=== PATIENT | male | born 1950 | race Caucasian/White ===

== ENCOUNTER → 2016-04-01 | Outpatient (CLI) | payer MEDICARE, OTHER ==
[~2016-04-01] MED LIST: ALLOPURINOL100 MG PO; ASPIRIN ADULT L81 M1 PO; ATIVAN0.5 MG PO; BACTRIM DS 8001 TA1 PO; BENADRYL50 MG PO; COUMADIN2.5 M1 PO; COUMADIN3 M1 PO; COUMADIN4 M2 PO; COUMADIN5 M2 PO; DOBUTAMINE250 MG/250 IV; HYDROCODONE BIT1 T11 PO; K + POTASSIUM20 MEQ PO; K-Dur 20MEQ20 MEQ PO; K-TAB20 MEQ PO; LANOXIN0.125 MG PO; LASIX80 MG PO; MAG-OX 400400 MG PO; MAGNESIUM400 M1 PO; MEDROL DOSEPAK4 MG PO; METOPROLOL50 MG PO; MULTIPLE VITAMI1 CAP PO; MUPIROCIN 2% TP; PRILOSEC20 M1 PO; PRILOSEC40 MG PO; PRINIVIL10 MG PO; QUINAPRIL10 M1 PO; QUINAPRIL20 MG PO; ROCALTROL0.5 MC1 PO; SMZ TMP 800 MG PO; SPIRONOLACTONE25 MG PO; TORSEMIDE100 MG PO; TRAZODONE50 MG PO; ULORIC40 MG PO; VICODIN 5/500 505 MG PO; VITAMIN C500 M4 PO; ZESTRIL10 MG PO; Zaroxolyn,Diul2.5 MG PO
== END | disposition home or self-care (01) ==
LOC: US 01:19
DX: N18.9 Chronic kidney disease, unspecified (principal); R31.9 Hematuria, unspecified

== ENCOUNTER → 2016-06-14 | Outpatient (CLI) | payer MEDICARE, OTHER ==
[~2016-06-14] MED LIST changes: -DOBUTAMINE250 MG/250 IV
[2016-06-14 16:47] LABS: BASO % 0.4 % (0.0-1.0); EOS % 0.3 % (1.0-4.0); HEMATOCRIT 47.5 % (42.0-52.0); HEMOGLOBIN 13.6 g/dl (14.0-18.0); LYMPH # 0.5 10*3/uL (1.3-4.4); LYMPH % 7.1 % (27.0-41.0); MEAN CELL VOLUME 88.1 fl (80.0-94.0); MEAN CORPUSCULAR HGB 25.2 pg (27.0-31.0); MEAN CORPUSCULAR HGB CONC 28.6 g/dl (33.0-37.0); MEAN PLATELET VOLUME 9.6 fl (9.6-12.3); MONO # 0.8 10*3/uL (0.1-1.0); NEUT # 5.5 10*3/uL (2.3-7.9); NEUT % 79.9 % (47.0-73.0); PLATELET COUNT AUTOMATED 117 10*3/uL (130-400); RED BLOOD COUNT 5.39 10*6/uL (4.50-5.90); RED CELL DISTRI WIDTH 18.7 % (0-14.5); WHITE BLOOD COUNT 6.9 10*3/uL (4.8-10.8)
[2016-06-14 16:57] LABS: PROTHROMBIN TIME 46.9 SECONDS (9.0-12.4)
[2016-06-14 17:03] LABS: ALBUMIN 3.2 gm/dl (3.1-4.5); BILIRUBIN, TOTAL 1.5 mg/dl (0.2-1.0); POTASSIUM 5.6 mmol/L (3.5-5.1); TOTAL PROTEIN 7.1 gm/dL (6.4-8.2)
[2016-06-14 17:08] LABS: HEMOGLOBIN A1c 6.5 % (4.8-5.6)
== END | disposition home or self-care (01) ==
LOC: RESCLI 13:07
PROVIDERS: Internal Medicine
DX: I51.9 Heart disease, unspecified (principal); I73.9 Peripheral vascular disease, unspecified; Z79.01 Long term (current) use of anticoagulants

== ENCOUNTER 2016-06-15 13:47 | Inpatient (IN) | payer MEDICARE, OTHER ==
[~2016-06-15] VITALS: Ht 175.2 cm; Wt 96.3 kg
--- NOTE | ~2016-06-15 | PR ---
[place], [place] PROGRESS NOTE NAME: MARIE MULLEN UNIT #: [id number] ROOM: 416 DOCTOR: STEVE AMBRIZ MD BIRTHDATE: [birth year] DOS: 06/21/2016 SUBJECTIVE: This gentleman is with severe hypertensive cardiomyopathy, was admitted because of severe cellulitis of the legs. The patient is being treated now fairly aggressively. He has been chronically short of breath, but today he seems to be more short of breath, i.e., tachypneic, and no chest pain or palpitations. He has had no chest pain. OBJECTIVE: VITAL SIGNS: Pulse is irregular, blood pressure 118/92. NECK: JVP is increased. LUNGS: Breath sounds are diminished with crackles bilaterally. Monitor shows at times a wide complex ventricular tachycardia at 150 beats per minute. The patient has biventricular AICD and threshold is probably set at a much higher rate. This is asymptomatic. IMPRESSION: 1. Severe hypertensive cardiomyopathy with some decompensation. He is getting his 100 mg of Demadex every day. He may need some Zaroxolyn along with that if his breathing does not seem to improve, 2. Nonsustained ventricular tachycardia, nothing to be done for this at this time, he has an automatic implantable cardioverter-defibrillator as a backup. ADDENDUM The patient has a moderate degree of edema in the upper extremities and severe edema of the lower extremities and the torso is rather edematous and taut. RECOMMENDATIONS: Demadex will be discontinued and the patient will be started on a Bumex drip 10 mg per 24 hours. Hopefully, we will be able to diurese him adequately. If not, we will add little dopamine and dobutamine as a continuous drip. [place], [place] PROGRESS NOTE NAME: MARIE MULLEN UNIT #: [id number] ROOM: 416 DOCTOR: STEVE AMBRIZ MD BIRTHDATE: [birth year] STEVE AMBRIZ MD CM:PNTRANS [phone] STEVE AMBRIZ MD 06/24/16 0656 interface
--- NOTE | ~2016-06-15 | PR ---
[place], [place] PROGRESS NOTE NAME: MARIE MULLEN UNIT #: [id number] ROOM: 416 DOCTOR: CARLENE HA MD BIRTHDATE: [birth year] DOS: 06/17/2016 SUBJECTIVE: 24-hour events noted. Discussed with the nursing staff. I am covering for Dr. Bah. The patient with significant left ventricular dysfunction with an AICD, history of atrial fibrillation and patient was seen by Dr. Bah yesterday. Cardiac status appears to be stable. He is breathing normally. The patient with severe cardiomyopathy with chronic kidney disease. OBJECTIVE: VITAL SIGNS: His blood pressure today is 90/60, heart rate is 74 intermittent paced rhythm. NECK: Supple, elevated JVD. LUNGS: Diminished breath sounds. HEART: Sounds are regular. ABDOMEN: Soft, nontender. EXTREMITIES: Trace edema. NEUROLOGIC: Stable. LABORATORY DATA: Hemoglobin 13.4, hematocrit 45.1, potassium 4.9, creatinine 2.6. Echocardiogram showed an ejection fraction of 15%-20%. IMPRESSION AND PLAN: Severe cardiomyopathy with mild cardiac decompensation, AICD, cellulitis of the lower extremity significant, agree with the present medications and the patient has the AICD, chronic atrial fibrillation, is functioning normally. RECOMMENDATIONS: Continue the present medications which include antibiotics as per the hospitalist. Monitor the renal function very closely. Continue aspirin. The patient is on ____ subcutaneous heparin for DVT prophylaxis. Long-term anticoagulation is warranted and we will follow up. The patient was at home on metoprolol 50 b.i.d., torsemide and Coumadin, which should be resumed. The patient has chronic atrial fibrillation and we will follow up. [place], [place] PROGRESS NOTE NAME: SEBASMARIE UNIT #: [id number] ROOM: 416 DOCTOR: CARLENE HA MD BIRTHDATE: [birth year] CARLENE HA MD CM:PNTRANS [id number] CARLENE HA MD 06/17/16 1105 interface
--- NOTE | ~2016-06-15 | PR ---
[place], [place] PROGRESS NOTE NAME: [id number] UNIT #: [id number] ROOM: 416 DOCTOR: BANDAR IZQUIERDO DPM BIRTHDATE: [birth year] DOS: 06/17/2016 SUBJECTIVE: The patient presents 65-year-old male for followup of ulcerations and cellulitis both lower extremities. OBJECTIVE: The results of the patient's venous Doppler is negative for DVT. The patient also had arterial Doppler, which revealed no significant peripheral arterial disease. Clinically, there is still erythema to both lower extremities, mild edema, but not significant. There are venous ulcerations of both lower extremities. Serous fluid noted. A blister of the medial left calf was noted and drained of serous fluid. ASSESSMENT: Venous ulcerations, lymphedema, venous insufficiency, cellulitis both lower extremities. PLAN: Evaluation and management, deferred Unna boots as the patient would drain through them in one day. Ordered Bactroban and Telfa with gauze dressings and Kerlix with Tubigrip to be applied daily. We will recheck the patient tomorrow. BANDAR IZQUIERDO DPM CM:MADELINE [id number] BANDAR IZQUIERDO DPM 06/18/16 0017 interface
--- NOTE | ~2016-06-15 | PR ---
[place], [place] PROGRESS NOTE NAME: [id number] UNIT #: [id number] ROOM: 416 DOCTOR: LUIS VALENZUELA DPM BIRTHDATE: [birth year] DOS: 06/21/2016 SUBJECTIVE: This patient is seen today for followup of bilateral leg ulcers as well as a left plantar arch wound. He states he is not feeling well today. He is having a hard time urinating, says he is swelling a little more in both legs and even up in his upper extremities. OBJECTIVE: Dressings are removed. Wounds are clean on the calf and lower leg area. They are more so on the right than the left. Minimal serous drainage is seen. No purulent drainage or malodor. Plantar left arch wound is fairly clean. No deep sinus tracts. No signs of abscess or infection. There is a little bit of erythema on the right lower extremity today, but no increased temperature. Negative Homans sign bilaterally. ASSESSMENT: Chronic venous insufficiency, venous leg ulcers, and diabetic ulcer of left foot. PLAN: Evaluation and management. Continue with wound care to the area with Maxorb as well as dry dressing. We will continue to monitor his wounds and follow up tomorrow. LUIS VALENZUELA DPM CM:MADELINE [phone] LUIS VALENZUELA DPM 06/21/16 1620 interface
--- NOTE | ~2016-06-15 | EKG ---
[place], [place] ELECTROCARDIOGRAM REPORT NAME: MARIE MULLEN UNIT #: [id number] ROOM: 416 DOCTOR: STEVE AMBRIZ MD BIRTHDATE: [birth year] DOS: 06/15/2016 TIME: 14:38 hours. Underlying atrial fibrillation with ventricular pacing at 75 beats per minutes. The tracing is normal. No previous tracing is available for comparison. STEVE AMBRIZ MD CM:EKGRPT:ELECTROCARDIOGRAM REPORT [id number] STEVE AMBRIZ MD
--- NOTE | ~2016-06-15 | PR ---
[place], [place] PROGRESS NOTE [facility]: [id number] UNIT #: [id number] ROOM: 416 DOCTOR: LUIS VALENZUELA DPM BIRTHDATE: [birth year] DOS: 06/18/2016 SUBJECTIVE: The patient seen today for followup of left arch ulcer as well as bilateral leg ulcers venous insufficiency. The patient has a history of significant deformity in the left foot and ankle for which he had surgery in the past and he is left with the significant deformity. OBJECTIVE: Neurovascular status is unchanged. There is still some low grade edema noted of both lower extremities, but minimal erythema, minimal serous drainage is noted from the wound was noted at the medial and lateral lower calf area. No purulent drainage or malodor. Negative Homans sign is seen. The left medial arch wound is clean with no signs of infection. ASSESSMENT: Peripheral edema, venous ulcerations both legs, ulcer of left arch and improving cellulitis bilaterally. PLAN: Evaluation and management. Dressings changed. He is doing better. There is decreased drainage, decreased swelling and redness. Continue with the current wound care. Reevaluate tomorrow. LUIS VALENZUELA DPM CM:MADELINE 11 [phone] LUIS VALENZUELA DPM 06/18/162003 interface
--- NOTE | ~2016-06-15 | PR ---
[place], [place] PROGRESS NOTE NAME: [id number] UNIT #: [id number] ROOM: 416 DOCTOR: BRUNO SamayoaYESSICA BIRTHDATE: [birth year] DOS: 06/17/2016 WOUND CARE FOLLOWUP SUBJECTIVE: The patient has no specific new complaints. He states that he thinks his legs are not as red today, but they are still painful. He has no other specific complaints. PHYSICAL EXAMINATION: VITAL SIGNS: Stable. Blood pressure is 98/62, pulse is 76, respirations 20. WOUND EXAMINATION: Apparently, the patient's wounds were examined earlier by Podiatry and they currently have 4 x 4s attached to the bases of the wounds. There were pretty adherent to the base of the wound at this time and still 2 of the wounds have a fair amount of fibrin and slough present that is on the left anterior leg and the right lateral leg. The erythema; however, seems improved today slightly, edema seems fairly stable and it is not acutely warm. The foot wounds appear stable at this time. It does look like the TheraHoney did clean up one of the larger wound and the base of the wound appears fairly healthy at this time. There is still some callus present around the periwound area. LABORATORY DATA: He has no new labs today. He did have a lower extremity ultrasound, which showed no evidence of a DVT. ASSESSMENT AND PLAN: Multiple blistering of the bilateral lower extremities, likely secondary to venous insufficiency. I would like [facility] for now as initially it was thought that these wounds resulted from a burn, however, it is more likely secondary to his venous insufficiency, so we will go ahead and would recommend Adaptic to keep the dressings from sticking and then Maxorb Ag to help absorb and for antibacterial coverage. We can use Kerlix and Jayme wrap for edema control at this time. These dressings can be changed daily. For the foot wound, it looks like it is a lot roll cleaner. So I would go ahead and use Aquacel AG for now, 4 x 4s and some Kerlix. He should have a postop shoe to ambulate with. His x-ray apparently was unremarkable and he did have a normal ESR I believe. ESR was only 2. The patient did have an echocardiogram done, which shows a severely diminished systolic function with an EF of 15%-20%. Most likely, this patient will need chronic wound care for some time until the wounds are healed and I would recommend outpatient treatment for the wound when medically stable. A culture was taken of the left anterior leg wound. [place], [place] PROGRESS NOTE NAME: MARIE MULLEN UNIT #: [id number] ROOM: [facility] DOCTOR: YESSICA CARR M.D. BIRTHDATE: [birth year] YESSICA CARR MD CM:MADELINE [phone] YESSICA CARR M.D. 06/18/16 0153 interface
--- NOTE | ~2016-06-15 | PR ---
[place], [place] PROGRESS NOTE NAME: MARIE MULLEN UNIT #: [id number] ROOM: 416 DOCTOR: CARLENE HA MD BIRTHDATE: [birth year] DOS: SUBJECTIVE: 24-hour events noted. The patient comfortably sleeping, does not look to be in any distress. No evidence of any ventricular tachycardia. OBJECTIVE: VITAL SIGNS: Blood pressure is 102/64. HEENT: Unremarkable. NECK: Supple. No JVD, no thyromegaly, no lymphadenopathy. LUNGS: Diminished breath sounds. EXTREMITIES: Positive edema and erythema. NEUROLOGIC: Stable. LABORATORY DATA: Hemoglobin 11.6, hematocrit 39.5. BUN and creatinine 42 and 1.8. IMPRESSION: Cellulitis, coagulopathy, normocytic anemia, history of supratherapeutic INR, acute on chronic renal failure, diabetes mellitus, AICD. Last INR is significantly improved 1.5. Continue the present care. Monitor the heart rate and blood pressure, resume the Coumadin, and we will follow up. CARLENE HA MD CM:PNTRANS 0739 [id number] CARLENE HA MD 06/22/16 1057 interface
--- NOTE | ~2016-06-15 | PR ---
[place], [place] PROGRESS NOTE [id number] UNIT #: [id number] ROOM: 416 DOCTOR: BRUNO Samayoa,YESSICA BIRTHDATE: [birth year] DOS: 06/18/2016 SUBJECTIVE: Dressings were removed. The patient states overall, his legs feel much better. He feels that the discoloration in his feet is improving as well and the pain is much improved. OBJECTIVE: VITAL SIGNS: This morning, his temperature is 97.4, pulse is 74, respirations 20, blood pressure is 137/88. EXTREMITIES: The Jayme wraps were removed. The dressing was removed. The Maxorb silver was not in place at this time that had been used yesterday. There seems to be overall an improvement as far as the wound, looks cleaner furniture today. The redness seems to have dissipated and is much less tender overall. The wounds on the bottom of his foot appear about the same overall. LABORATORY DATA: The wound culture from the left wound was showing many white blood cells, but no bacterial growth. His white count today is 5.5, platelets are 101. His BUN is 47, creatinine is 2.15. Sodium 135, chloride is 92. ASSESSMENT AND PLAN: Venous ulcerations with cellulitis and weeping wounds. I would continue daily dressing change for now. Since he is having a lot of drainage, we can continue with the Adaptic to help prevent the dressings from adhering and causing trauma and the Maxorb silver to help absorb drainage and also for antimicrobial purposes and also to use 4 x 4s, Kerlix and an Jayme wrap for compression for now. The patient has multiple medical problems right now that are being addressed by his medical team that include cardiomyopathy, chronic renal failure. He is quite debilitated and will be going to a assisted facility. He also has a diabetic foot ulcer. I would use a silver dressing on this for now as well. In the meantime, have him use a postop shoe. He will need some offloading device as he does have a Charcot foot deformity. YESSICA CARR MD CM:PNTRANS [phone] YESSICA CARR M.D. 06/19/16 0226 interface
--- NOTE | ~2016-06-15 | CON ---
[place], [place] REPORT OF CONSULTATION NAME: MARIE MULLEN UNIT #: [id number] ROOM: 416 DOCTOR: ALEJANDRO CALIXTO MD BIRTHDATE: [birth year] DOS: 06/19/2016 The patient was seen on 06/19/2016. REASON FOR CONSULTATION: Bilateral lower extremity cellulitis. CONSULTING PHYSICIAN: Dr. Ranulfo Kwok. HISTORY OF PRESENT ILLNESS: This is a 65-year-old man who was admitted for abnormal labs. He was seen in the resident clinic on the day of admission and had labs done and was told to go to the Emergency Room for evaluation after he was found to have abnormal labs. He had shortness of breath going on for about 2 months, and also had dyspnea on exertion. He had watery diarrhea, but no fever, chills, or vomiting. His lower extremities had been looking red and had been worsening with blisters and open wounds for the last 4 months. Also had an ulceration on plantar aspect of his left foot. He has chronic congestive heart failure and he is getting dobutamine infusions through his right-sided MediPort. PAST MEDICAL HISTORY: Positive for history of AFib, CHF, GERD, hypertension, pacemaker placement, arthritis. PAST SURGICAL HISTORY: Pacemaker placement, cataract surgery, hernia repair, and left foot surgery. SOCIAL HISTORY: Does not drink alcohol or use illicit drugs or smoke cigarettes. FAMILY HISTORY: Father had coronary artery disease. HOME MEDICATIONS AND CURRENT INPATIENT MEDICATIONS: Reviewed. ALLERGIES: He is allergic to PENICILLIN, IMIPENEM, VANCOMYCIN, and ACETAMINOPHEN. REVIEW OF SYSTEMS: A 14 review of systems done, otherwise negative unless otherwise specified in the HPI. PHYSICAL EXAMINATION: VITAL SIGNS: Showed a temperature of 97.6, heart rate of 76, blood pressure of 110/76, respiratory rate of 18, pulse ox of 94 on 5 liters of nasal cannula oxygen. GENERAL APPEARANCE: Awake, alert, oriented to time, place, and person, in no acute distress. Oral cavity: Moist, intact. HEART: Regular rate and rhythm. S1, S2 normal. No murmurs, gallops or rubs. LUNGS: diminished anterior bases. EXTREMITIES: Bilateral lower extremity chronic venous stasis changes, onychomycosis of the nails. Small ulcers on the left mendez. Nonpurulent redness and pain on palpation. Venous stasis dermatitis of bilateral lower extremities. [place], [place] REPORT OF CONSULTATION NAME: MARIE MULLEN UNIT #: [id number] ROOM: 416 DOCTOR: ALEJANDRO CALIXTO MD BIRTHDATE: [birth year] LABORATORY DATA: Reviewed. WBC of 6.5, hemoglobin of 12.8, platelets of 97. Chemistry showing BUN of 47, creatinine of 2.26. Lactic acid was 2.1 on admission. ASSESSMENT AND PLAN: 1. Left lower extremity cellulitis complicated with chronic venous stasis dermatitis and onychomycosis, currently on Teflaro in view of multiple antibiotic allergies. Continue the same upon discharge, he could be switched to IV of Rocephin since he had tolerated Teflaro fine. He has a right-sided MediPort. It should not be a problem to give him IV antibiotics. Plan is to discharge him to rehabilitation. Continue antibiotics for a total of 10 days after discharge to finish a total of 14 days of treatment. 2. Bilateral lower extremity edema, currently on diuresis, monitor creatinine. 3. Onychomycosis of nails bilaterally. I will start on terbinafine topical and p.r.n. continued for 3-month. Followup with Infectious Disease and myself in 2 weeks' time. Thank you for this consult. I will continue to follow. ALEJANDRO CALIXTO MD CM:CONSTR:REPORT OF CONSULTATION 1602 06/19/16 6347 interface
--- NOTE | ~2016-06-15 | CON ---
[place], [place] REPORT OF CONSULTATION NAME: SEBASMARIE Gallego UNIT #: [id number] ROOM: 416 DOCTOR: ANNEMARIE BLANTON DPMGERALDINE BIRTHDATE: [birth year] DOS: 06/16/2016 TIME OF DICTATION: 12:34 p.m. CHIEF COMPLAINT: Bilateral ulcerations. HISTORY OF PRESENT ILLNESS: This is a 65-year-old male who presented to the Emergency Room, who was admitted to the hospital for abnormal labs, who was seen at bedside for evaluation regarding lower extremity edema and what appeared to be venous ulcerations. The patient thinks that the ulcer start from ramsay that he experienced while in the shower; however, he has no other ramsay appreciated to his upper extremities or body. PAST MEDICAL HISTORY: Significant for atrial fibrillation, congestive heart failure, gastric reflux, hypertension, and pacemaker. PAST SURGICAL HISTORY: Significant for cataracts, hernia repair as well as left foot surgery. PAST SOCIAL HISTORY: He denies any illicit alcohol or drug use. He is a nonsmoker. FAMILY HISTORY: Mother and father are . ALLERGIES: TO PENICILLIN, IMIPENEM, VANCOMYCIN AND ACETAMINOPHEN. MEDICATION: Please refer to medication list. PHYSICAL EXAMINATION: VASCULAR: DP and PT pulses are barely palpable, CFT is within normal limits, shiny atrophic skin appreciated to bilateral lower extremities. Lack of hair growth is noted. DERMATOLOGY: The patient has what appears to be venous insufficiency with chronic brawny hyperpigmentation to bilateral lower legs. He has some superficial blisters appreciated to bilateral lower extremities with most of them having been deroofed already. No signs of infection or inflammation. NEUROLOGIC: Light touch sensation is intact. No gross motor deficits. ORTHO: Muscle strength is maintained. Negative Homans', negative calf pain. He does have a deformity appreciated at the level of the ankle joint. There is increased bone formation noted to the ankle joint on the left hand side. He appears to have marked flat foot deformity as well with valgus deformity. ASSESSMENT: 1. Edema. 2. Venous insufficiency. 3. Deformity, left foot and ankle. TREATMENT PLANS AND RECOMMENDATIONS: Findings as well as prognosis were discussed in detail with the patient. All questions were answered to his apparent satisfaction. This is a 65-year-old male seen at bedside for [place], [place] REPORT OF CONSULTATION NAME: MARIE MULLEN UNIT #: [id number] ROOM: [facility] DOCTOR: GERALDINE SHARPE III, DPM BIRTHDATE: [birth year] evaluation regarding lower extremity edema and ulcerations. Appears to be venous in origin. I recommend venous Dopplers at this time to rule out any underlying DVT. The patient responded well to Unna boot application bilateral. He also has a significant deformity on the left. Appears to have had prior surgery by a local orthopedic doctor beforehand. We will order foot and ankle films to evaluate his left ankle and foot. He does have a superficial ulceration also noted to the plantar medial aspect of his left foot as well. It is not infected and has a stable eschar. The patient is in agreement with plan. We will follow pending ultrasounds and proceed from there. GERALDINE SHARPE III, DPM CM:CONSTR:REPORT OF CONSULTATION 1237 06/17/16 0032 interface
--- NOTE | ~2016-06-15 | CON ---
[place], [place] REPORT OF CONSULTATION NAME: MARIE MULLEN UNIT #: [id number] ROOM: 416 DOCTOR: STEVE AMBRIZ MD BIRTHDATE: [birth year] DOS: 06/16/2016 HISTORY OF PRESENT ILLNESS: The patient is a 65-year-old -[place] gentleman whom I am known for the last several years. In 2009, he presented to this hospital in severe systolic heart failure and EF was severely depressed, systolic blood pressure was very high and it was diagnosed with hypertensive cardiomyopathy. He was diuresed over 50 pounds of water at that time and diagnostic heart catheterization and selective coronary angiogram demonstrate severe LV systolic dysfunction and normal coronary arteries at that time. He has chronic kidney disease with creatinines running around 1.9-2. This gentleman received dobutamine treatment as outpatient in this hospital twice a week with much clinical benefit. He has chronic problem with lower extremities from injuries at young age. He has atrial fibrillation and has an AICD that was implanted many years ago. He has had herniorrhaphy, left foot surgery, and GERD. He was admitted to the hospital because of red legs and blisters, some of them ruptured. He has not had any fever or chills. No PND, orthopnea, or swelling of the lower extremities. There has not been any palpitation. AICD has not discharged. I was asked to see him because of slightly increased troponin I level. HOME MEDICATIONS: Include aspirin, digoxin, lisinopril 10 mg b.i.d., metoprolol 50 b.i.d., potassium chloride 20 mEq b.i.d., torsemide, I believe 100 mg daily, trazodone 50 mg at bedtime, warfarin 4 mg daily and also Rocaltrol. PHYSICAL EXAMINATION: GENERAL: This patient is very pleasant, alert. He is not in any pain or in any distress. VITAL SIGNS: Temperature is normal. Blood pressure is 117/92. NECK: JVP is mildly elevated. LUNGS: Breath sounds are moderately diminished bilaterally with adventitious sounds. EXTREMITIES: There is barely any edema of the lower extremities. The legs below the knees are bright red with some blisters and some blisters that have ruptured. Capillary filling is rather rapid. Pedal pulses are difficult to appreciate. creatinine 2.62 and normally his creatinine hovers around 2 or so, BUN 53. Hemoglobin is 13.4 g/dL. IMPRESSION: 1. Slight increased troponin I level is due to severe cardiomyopathy and chronic kidney disease. He had normal coronary arteries many years ago. I do not feel any further cardiac workup is necessary. 2. Severe cardiomyopathy with mild cardiac decompensation. He is very comfortable. I would not try use of any further since there is no edema in the lower extremities as it is likely to worsen his renal function. [place], [place] REPORT OF CONSULTATION NAME: MARIE MULLEN UNIT #: [id number] ROOM: 416 DOCTOR: STEVE AMBRIZ MD BIRTHDATE: [birth year] 3. Cellulitis of the lower extremities is quite significant and I believe he is on this latest cephalosporin, which is very expensive. I think one may want to think about changing this to a simpler cephalosporin to cost contain. 4. Chronic atrial fibrillation. He has an AICD, which is functioning fine. I thank you for this consult. STEVE AMBRIZ MD CM:CONSTR:REPORT OF CONSULTATION 0753 06/16/16 1028 interface
--- NOTE | ~2016-06-15 | PR ---
[place], [place] PROGRESS NOTE NAME: MARIE MULLEN UNIT #: [id number] ROOM: 416 DOCTOR: STEVE AMBRIZ MD BIRTHDATE: [birth year] DOS: 06/21/2016 ADDENDUM Because he seems to be resistant to Demadex IV, Bumex drip will be started along with continuous dobutamine and dopamine drip for 72 hours. STEVE AMBRIZ MD CM:PNTRANS [id number] STEVE AMBRIZ MD 06/22/16 0439 interface
--- NOTE | ~2016-06-15 | PR ---
[place], [place] PROGRESS NOTE NAME: MARIE MULLEN UNIT #: [id number] ROOM: 416 DOCTOR: STEVE AMBRIZ MD BIRTHDATE: [birth year] DOS: 06/18/2016 SUBJECTIVE: He has cellulitis with bullous formation in the legs below the knees and he is on antibiotics. He does not have any fever or chills. He has no difficulty breathing at rest. He is lying flat in bed and does not feel uncomfortable. No chest pain or palpitations. PHYSICAL EXAMINATION: VITAL SIGNS: Pulse is 76, blood pressure is rather 96/74. NECK: JVP is mildly. CARDIOVASCULAR: Auscultation reveals no obvious murmurs. He has rhonchi with mildly reduced breath sounds. EXTREMITIES: No edema in the lower extremities. IMPRESSION: 1. Severe, hypertensive cardiomyopathy, is adequately compensated. Current medications will be continued. He is receiving outpatient dobutamine treatment twice a week, which has clinically helped him. 2. Hypertension. This is more than controlled. 3. Cellulitis of the legs is being treated. 4. No new recommendations at this time. STEVE AMBRIZ MD CM:PNTRANS 0716 [id number] STEVE AMBRIZ MD 06/18/16 0926 interface
--- NOTE | ~2016-06-15 | CON ---
[place], [place] REPORT OF CONSULTATION [id number] UNIT #: [id number] ROOM: 416 DOCTOR: BRUNO SamayoaYESSICA BIRTHDATE: [birth year] DOS: 06/16/2016 WOUND CARE CONSULTATION HISTORY OF PRESENT ILLNESS: The patient is a 65-year-old male who was actually [facility] for chronic ulceration; however, he was instructed to go to the Emergency Room Department yesterday secondary to abnormal labs. He does report a history of progressively increasing shortness of breath, orthopnea, dyspnea on exertion. He also has noted some new blistering of his lower extremities approximately within this past week. He said he went to go take a hot shower and afterwards the next day noted multiple blisters on his bilateral lower extremities. He says he has had a problem with blisters before, but not for quite some time. He also has a chronic ulcer of his left foot, which he has had for approximately a month now. He has a history of foot surgery with subsequent osteomyelitis and infection and underwent a complex surgery around 2008 by a physician in [place]. He says he is not diabetic. He was told that his deformity is secondary to arthritis and tendinitis, but he has had an ulcer at the bottom of his foot for about a month now. He says this does not cause him any pain. He does complain of also episodes of diarrhea, feeling chills, but no overt fevers. No nausea or vomiting or abdominal pains. He says he does not wear any special shoes for his deformity of his left foot, but is unable to ambulate. The patient's abnormal labs include a creatinine of 2.6, a hemoglobin A1c of 6.5 and INR of 4. Therefore, the patient was admitted. He does follow up with the braille coder and has a pacemaker and defibrillator in place. He does not report the defibrillator going off. PAST MEDICAL HISTORY: Significant for arthritis, atrial fibrillation, congestive heart failure, systolic dysfunction, AICD placed many years ago, severe LV dysfunction, chronic kidney disease with a creatinine of 1.9 to 2. He does receive dobutamine treatments as an outpatient in this hospital twice a week. He has had left foot surgery as stated above. He is status post cataract surgery and hernia repair. SOCIAL HISTORY: He does not smoke or drink. FAMILY HISTORY: Noncontributory. ALLERGIES: MULTIPLE INCLUDE PENICILLIN, IMIPENEM, VANCOMYCIN, ACETAMINOPHEN, AND TAPE. MEDICATIONS: That are ordered are as follows: He is on heparin subQ, aspirin 81 mg daily, trazodone 50 mg q.h.s., Teflaro 400 mg IV q. 12, [place] 5/325 one tablet t.i.d., Zofran 4 mg IV q. 6 hours p.r.n. REVIEW OF SYSTEMS: He does complain of some shortness of breath, some orthopnea, dyspnea on exertion, no chest pains that he is aware of. No nausea or vomiting. He did complain of 2 episodes of diarrhea. He does complain of pain where the blistering areas are on his legs. No fevers, but some chills. He does not complain of any pain at the bottom of his foot. [place], [place] REPORT OF CONSULTATION NAME: MARIE MULLEN UNIT #: [id number] ROOM: [facility] DOCTOR: YESSICA CARR M.D. BIRTHDATE: [birth year] PHYSICAL EXAMINATION: VITAL SIGNS: Temperature 98.3, pulse of 76, respirations 18, blood pressure is 112/84. GENERAL: This is a well-developed, well-nourished male who appears to be in no acute distress. He is pleasant and cooperative. HEENT: oropharynx is somewhat dry. NECK: Veins are slightly distended. LUNGS: Have decreased breath sounds at the bases, minimal rales. CARDIOVASCULAR: S1, S2, irregularly irregular, distant heart sounds, a systolic murmur appreciable. ABDOMEN: Soft and nontender. EXTREMITIES: He has multiple blistering areas on the anterior lower extremities as well as a few on the lateral legs. The right-sided blisters are somewhat larger, most of them have ruptured. The largest one is located on the right lateral lower extremity and I would say it is measuring approximately 3 cm x 4 cm. His toes are cool. He has got evidence of venous stasis changes, dusky appearance in his toes. There is no calf tenderness. Multiple varicosities are noted. He does have some trace edema. The blistered areas have periwound tenderness and erythema. They are multiple and superficial and with just epidermal tissue loss. His 2 areas on the bottom of his left foot, he has what appears to be look like a Charcot foot deformity in 2 open areas, one is slightly dry with some callus formation around it, but minimal. It is not acutely tender or erythematous. There is another area distal to that, that is measuring approximately 0.5 cm in length x 1.5 in width. There is minimal slough present. It is not acutely tender either. His pedal pulses are difficult to feel. His toes are cool. He had a lower extremity arterial ultrasound done, which showed triphasic waveforms. Tibial vessels and dorsalis pedis are dampened triphasic/biphasic and the right lower extremity as well as the left lower extremity, there are triphasic waveforms but no significant peripheral vascular disease is noted. The chest x-ray was done, which showed cardiomegaly with no acute process. LABORATORY DATA: Shows a white count of 5.8, hemoglobin of 13, hematocrit of 46.8, platelets of 116. Chem-7 shows a BUN of 53, a creatinine is 2.62, bicarb of 35, chloride of 97. Digoxin level is 1.59. Total bilirubin is 1.9. AST, ALT, alk phos is normal. Troponin I was measured at 0.102 and is trending down the 0.083. Total protein is 6.6. ASSESSMENT AND PLAN: Blistering of the lower extremity, likely secondary to venous insufficiency based on clinical examination. Dr. Sanchez was in the room as well and did unroof one of the blisters. We had initially recommended Adaptic and Silvadene to the wounds for now. We can continue to use this for now as well as 4 x 4s and Kerlix. We can use Tubigrip in the meantime. Venous Doppler ultrasounds have been ordered to rule out venous thrombosis. If negative, Podiatry plans to put a Unna boot on tomorrow for compression therapy. For his left chronic ulceration of the left foot, he has a history of osteomyelitis, has had surgery on his foot. We can go ahead and get a plain x-ray for now. Consider doing ESR and CRP. We will use TheraHoney, 4 x 4s and John. He should have some offloading device, although due to his deformity, it [place], [place] REPORT OF CONSULTATION NAME: MARIE MULLEN UNIT #: [id number] ROOM: 416 DOCTOR: BRUNO Samayoa,YESSICA BIRTHDATE: [birth year] will probably be need to be made custom made. In addition, we may want to go ahead and get a bone scan too while he is inhouse if he is going to be here for a while. He has multiple other medical problems that include cardiomyopathy, acute on chronic renal failure, which are being managed by his medical team. YESSICA CARR MD CM:CONSTR:REPORT OF CONSULTATION 1252 06/17/16 0013 interface
--- NOTE | ~2016-06-15 | PR ---
[place], [place] PROGRESS NOTE [id number] UNIT #: [id number] ROOM: 416 DOCTOR: BRUNO Samayoa,YESSICA BIRTHDATE: [birth year] DOS: 06/21/2016 SUBJECTIVE: The patient says he is not feeling well. He continues to get short of breath very easily. He says his legs are still uncomfortable and causing pain and discomfort. OBJECTIVE: VITAL SIGNS: Stable. Temperature is 97, pulse is 73, respirations 20, blood pressure is 110/74. EXTREMITIES: Dressings were removed again today. The left lower extremity wounds appear to be stable and less fibrin slough present since the last time I have seen them. The redness appears stable and improved. It is not acutely tender. The right lower extremity wounds are about the same. There is quite a bit of drainage. serous in nature. These dressings were just changed about an hour ago and they have already soaked to the secondary dressing so those continued to drain large amounts of fluid. The erythema does appear about the same to me as before. They do look clean. I do not appreciate any necrotic tissue and there is no overt purulence. The left foot ulcerations appear about the same. There was no dressing on that at this time. It was open. Staff report that they did put a dressing on, however, it looks like it must have fallen off. ASSESSMENT AND PLAN: I will continue to use a silver dressing with . Maxorb silver has been ordered. Due to the large amounts of drainage still present, I would have them change the dressing twice a day instead of once a day, especially for the right leg. Also, I think that he is at risk for pressure ulcers of his heel as he is quite debilitated and I would at least have the patient elevate his legs with pillows beneath the cast to try to keep his heels floated to avoid any future problems. Also, the staff had felt that the Jayme wraps were on a little too tight and they were removed, so I would just recommend using Tubigrip for now to help with edema control instead of Jayme wrap. I will follow along with you. YESSICA CARR MD CM:MARÍA ELENATRANS [id number] YESSICA CARR M.D. 06/21/16 2317 interface
[2016-06-15 13:54] VITALS: BP 97/63
[2016-06-15 14:27] LABS: BASO # 0.1 10*3/uL (0.0-0.1); BASO % 0.8 % (0.0-1.0); EOS % 0.5 % (1.0-4.0); HEMATOCRIT 47.2 % (42.0-52.0); HEMOGLOBIN 13.4 g/dl (14.0-18.0); LYMPH # 0.5 10*3/uL (1.3-4.4); LYMPH % 8.2 % (27.0-41.0); MEAN CELL VOLUME 87.7 fl (80.0-94.0); MEAN CORPUSCULAR HGB 24.9 pg (27.0-31.0); MEAN CORPUSCULAR HGB CONC 28.4 g/dl (33.0-37.0); MEAN PLATELET VOLUME 9.6 fl (9.6-12.3); MONO # 0.7 10*3/uL (0.1-1.0); MONO % 11.7 % (3.0-9.0); NEUT # 4.7 10*3/uL (2.3-7.9); NEUT % 78.5 % (47.0-73.0); PLATELET COUNT AUTOMATED 138 10*3/uL (130-400); RED BLOOD COUNT 5.38 10*6/uL (4.50-5.90); RED CELL DISTRI WIDTH 18.7 % (0-14.5)
[2016-06-15 14:35] LABS: INTERNATIONAL NORM RATIO 4.1 (2.0-3.5); PROTHROMBIN TIME 47.4 SECONDS (9.0-12.4)
[2016-06-15 14:53] LABS: BILIRUBIN, TOTAL 2.7 mg/dl (0.2-1.0); C-REACTIVE PROTEIN 1.2 MG/DL (0-0.3); MAGNESIUM 2.6 mg/dL (1.5-2.1); POTASSIUM 5.2 mmol/L (3.5-5.1); TOTAL PROTEIN 6.9 gm/dL (6.4-8.2)
[2016-06-15 15:00] VITALS: BP 100/60
[2016-06-15 15:04] LABS: TROPONIN I 0.069 ng/ml (<0.045)
[2016-06-15 15:05] LABS: CKMB 10.8 ng/ml (0.5-3.6)
[2016-06-15 16:00] VITALS: BP 117/92
[2016-06-15 16:21] LABS: LA>2 REFLEX 2 HR DRAW NOW
[2016-06-15 16:37] LABS: LA>2 RFLX FOLLOW UP AT 2 HRS 2.1 mmol/L (0.4-2.0)
[2016-06-15 18:31] LABS: LA>2 REFLEX 4 HR DRAW NOW
[2016-06-15 19:50] VITALS: BP 121/73
[2016-06-15 20:00] VITALS: BP 121/73
[2016-06-16] VITALS: BP 117/92
[2016-06-16 01:18] LABS: CKMB 10.3 ng/ml (0.5-3.6); TROPONIN I 0.115 ng/ml (<0.045)
[2016-06-16 06:12] LABS: BASO % 0.7 % (0.0-1.0); EOS # 0.1 10*3/uL (0.0-0.4); EOS % 1.8 % (1.0-4.0); HEMATOCRIT 46.8 % (42.0-52.0); HEMOGLOBIN 13.4 g/dl (14.0-18.0); LYMPH # 0.8 10*3/uL (1.3-4.4); LYMPH % 13.5 % (27.0-41.0); MEAN CELL VOLUME 87.6 fl (80.0-94.0); MEAN CORPUSCULAR HGB 25.1 pg (27.0-31.0); MEAN CORPUSCULAR HGB CONC 28.6 g/dl (33.0-37.0); MEAN PLATELET VOLUME 9.5 fl (9.6-12.3); MONO # 0.8 10*3/uL (0.1-1.0); NEUT # 3.9 10*3/uL (2.3-7.9); NEUT % 69.8 % (47.0-73.0); PLATELET COUNT AUTOMATED 116 10*3/uL (130-400); RED BLOOD COUNT 5.34 10*6/uL (4.50-5.90); RED CELL DISTRI WIDTH 19.1 % (0-14.5); WHITE BLOOD COUNT 5.6 10*3/uL (4.8-10.8)
[2016-06-16 06:35] LABS: CKMB 8.6 ng/ml (0.5-3.6); TROPONIN I 0.102 ng/ml (<0.045)
[2016-06-16 06:54] LABS: ALBUMIN 3.1 gm/dl (3.1-4.5); BILIRUBIN, TOTAL 1.9 mg/dl (0.2-1.0); MAGNESIUM 2.8 mg/dL (1.5-2.1); PHOSPHOROUS 3.9 mg/dL (2.5-4.9); POTASSIUM 4.9 mmol/L (3.5-5.1); TOTAL PROTEIN 6.6 gm/dL (6.4-8.2)
[2016-06-16 07:01] LABS: FREE T4 1.28 ng/dl (0.76-1.46); THYROID STIM HORMONE (HS) 2.3 uIU/ml (0.358-4.75)
[2016-06-16 07:06] LABS: INTERNATIONAL NORM RATIO 3.7 (2.0-3.5); PROTHROMBIN TIME 42.2 SECONDS (9.0-12.4)
[2016-06-16 07:21] LABS: VITAMIN D, 25-HYDROXY 46.2 ng/mL (30-100)
[2016-06-16 07:34] LABS: FOLIC ACID > 24.00 ng/mL (>5.38)
[2016-06-16 08:00] VITALS: BP 112/84
[2016-06-16 12:00] VITALS: BP 108/79
[2016-06-16 12:27] LABS: CKMB 8.6 ng/ml (0.5-3.6); TROPONIN I 0.083 ng/ml (<0.045)
[2016-06-16 16:49] VITALS: BP 109/78
[2016-06-16 20:00] VITALS: BP 117/89
[2016-06-17] VITALS: BP 90/69
[2016-06-17 08:00] VITALS: BP 100/64
[2016-06-17 12:00] VITALS: BP 98/62
[2016-06-17 16:00] VITALS: BP 89/64
[2016-06-17 20:00] VITALS: BP 92/56
[2016-06-18] VITALS: BP 96/74
[2016-06-18 07:02] LABS: BASO % 0.5 % (0.0-1.0); EOS # 0.1 10*3/uL (0.0-0.4); EOS % 2.4 % (1.0-4.0); HEMATOCRIT 44.6 % (42.0-52.0); HEMOGLOBIN 12.7 g/dl (14.0-18.0); LYMPH # 0.6 10*3/uL (1.3-4.4); LYMPH % 10.4 % (27.0-41.0); MEAN CELL VOLUME 87.8 fl (80.0-94.0); MEAN CORPUSCULAR HGB CONC 28.5 g/dl (33.0-37.0); MONO # 0.7 10*3/uL (0.1-1.0); MONO % 13.5 % (3.0-9.0); NEUT % 72.8 % (47.0-73.0); PLATELET COUNT AUTOMATED 101 10*3/uL (130-400); RED BLOOD COUNT 5.08 10*6/uL (4.50-5.90); RED CELL DISTRI WIDTH 18.3 % (0-14.5); WHITE BLOOD COUNT 5.5 10*3/uL (4.8-10.8)
[2016-06-18 07:33] LABS: ALBUMIN 2.8 gm/dl (3.1-4.5); BILIRUBIN, TOTAL 1.1 mg/dl (0.2-1.0); MAGNESIUM 2.7 mg/dL (1.5-2.1); POTASSIUM 4.5 mmol/L (3.5-5.1); TOTAL PROTEIN 6.1 gm/dL (6.4-8.2)
[2016-06-18 07:34] LABS: INTERNATIONAL NORM RATIO 3.1 (2.0-3.5); PROTHROMBIN TIME 35.6 SECONDS (9.0-12.4)
[2016-06-18 08:00] VITALS: BP 118/72
[2016-06-18 12:00] VITALS: BP 137/88
[2016-06-18] MEDS ORDERED: DOBUTAMINE250 MG/250 IV (13:23)
[2016-06-18 16:00] VITALS: BP 94/63
[2016-06-18 20:00] VITALS: BP 100/62
[2016-06-19] VITALS: BP 88/64
[2016-06-19 02:15] LABS: BILIRUBIN NEGATIVE (NEGATIVE); BLOOD NEGATIVE (NEGATIVE); CLARITY CLEAR (CLEAR); COLOR YELLOW (YELLOW); GLUCOSE NEGATIVE (NEGATIVE); KETONE NEGATIVE (NEGATIVE); LEUKO ESTERASE NEGATIVE (NEGATIVE); NITRITE NEGATIVE (NEGATIVE); PH 5.5 (5.0-9.0); PROTEIN TRACE (NEGATIVE); UROBILINOGEN 0.2 E.U./dl (0.2-1.0)
[2016-06-19 02:24] LABS: URINE REFLEX COMMENT NO (NO); WBC 0-2 wbc/hpf (0-5)
[2016-06-19 05:58] LABS: BASO % 0.5 % (0.0-1.0); EOS # 0.1 10*3/uL (0.0-0.4); EOS % 1.2 % (1.0-4.0); HEMATOCRIT 44.2 % (42.0-52.0); HEMOGLOBIN 12.8 g/dl (14.0-18.0); LYMPH # 0.6 10*3/uL (1.3-4.4); LYMPH % 9.1 % (27.0-41.0); MEAN CELL VOLUME 86.5 fl (80.0-94.0); MEAN PLATELET VOLUME 10.4 fl (9.6-12.3); MONO # 0.8 10*3/uL (0.1-1.0); MONO % 12.7 % (3.0-9.0); NEUT # 4.9 10*3/uL (2.3-7.9); NEUT % 76.3 % (47.0-73.0); PLATELET COUNT AUTOMATED 97 10*3/uL (130-400); RED BLOOD COUNT 5.11 10*6/uL (4.50-5.90); RED CELL DISTRI WIDTH 18.6 % (0-14.5); WHITE BLOOD COUNT 6.5 10*3/uL (4.8-10.8)
[2016-06-19 06:01] LABS: ALBUMIN 2.7 gm/dl (3.1-4.5); BILIRUBIN, TOTAL 1.1 mg/dl (0.2-1.0); TOTAL PROTEIN 6.2 gm/dL (6.4-8.2)
[2016-06-19 06:10] LABS: INTERNATIONAL NORM RATIO 2.4 (2.0-3.5); PROTHROMBIN TIME 26.7 SECONDS (9.0-12.4)
[2016-06-19 08:00] VITALS: BP 103/75
[2016-06-19 12:00] VITALS: BP 110/76
[2016-06-19 16:00] VITALS: BP 147/62
[2016-06-19 20:00] VITALS: BP 113/69
[2016-06-20] VITALS: BP 105/65
[2016-06-20 06:27] LABS: BASO % 0.3 % (0.0-1.0); EOS # 0.1 10*3/uL (0.0-0.4); EOS % 1.2 % (1.0-4.0); HEMATOCRIT 42.7 % (42.0-52.0); HEMOGLOBIN 12.5 g/dl (14.0-18.0); LYMPH # 0.4 10*3/uL (1.3-4.4); LYMPH % 6.8 % (27.0-41.0); MEAN CELL VOLUME 86.1 fl (80.0-94.0); MEAN CORPUSCULAR HGB 25.2 pg (27.0-31.0); MEAN CORPUSCULAR HGB CONC 29.3 g/dl (33.0-37.0); MEAN PLATELET VOLUME 10.5 fl (9.6-12.3); MONO # 0.6 10*3/uL (0.1-1.0); MONO % 10.8 % (3.0-9.0); NEUT # 4.7 10*3/uL (2.3-7.9); NEUT % 80.7 % (47.0-73.0); PLATELET COUNT AUTOMATED 84 10*3/uL (130-400); RED BLOOD COUNT 4.96 10*6/uL (4.50-5.90); RED CELL DISTRI WIDTH 18.4 % (0-14.5); WHITE BLOOD COUNT 5.9 10*3/uL (4.8-10.8)
[2016-06-20 06:39] LABS: POTASSIUM 5.3 mmol/L (3.5-5.1)
[2016-06-20 06:42] LABS: INTERNATIONAL NORM RATIO 1.7 (2.0-3.5); PROTHROMBIN TIME 18.8 SECONDS (9.0-12.4)
[2016-06-20 08:00] VITALS: BP 94/58
[2016-06-20 12:00] VITALS: BP 102/67
[2016-06-20 16:00] VITALS: BP 102/67
[2016-06-20 19:38] VITALS: BP 100/60
[2016-06-20 20:00] VITALS: BP 99/72
[2016-06-21] VITALS (13 sets, daily range): BP systolic 90–151; BP diastolic 60–98
[2016-06-21 06:16] LABS: BASO % 0.3 % (0.0-1.0); EOS # 0.1 10*3/uL (0.0-0.4); EOS % 1.6 % (1.0-4.0); HEMATOCRIT 39.5 % (42.0-52.0); HEMOGLOBIN 11.6 g/dl (14.0-18.0); LYMPH # 0.4 10*3/uL (1.3-4.4); LYMPH % 7.3 % (27.0-41.0); MEAN CELL VOLUME 85.1 fl (80.0-94.0); MEAN CORPUSCULAR HGB CONC 29.4 g/dl (33.0-37.0); MEAN PLATELET VOLUME 10.5 fl (9.6-12.3); MONO # 0.6 10*3/uL (0.1-1.0); MONO % 10.8 % (3.0-9.0); NEUT # 4.6 10*3/uL (2.3-7.9); NEUT % 79.8 % (47.0-73.0); PLATELET COUNT AUTOMATED 82 10*3/uL (130-400); RED BLOOD COUNT 4.64 10*6/uL (4.50-5.90); RED CELL DISTRI WIDTH 18.3 % (0-14.5); WHITE BLOOD COUNT 5.7 10*3/uL (4.8-10.8)
[2016-06-21 06:28] LABS: POTASSIUM 5.7 mmol/L (3.5-5.1)
[2016-06-21 06:31] LABS: INTERNATIONAL NORM RATIO 1.5 (2.0-3.5); PROTHROMBIN TIME 16.2 SECONDS (9.0-12.4)
[2016-06-22] VITALS (7 sets, daily range): BP systolic 70–131; BP diastolic 42–84
[2016-06-22 07:22] LABS: ALBUMIN 2.5 gm/dl (3.1-4.5)
[2016-06-22 07:23] LABS: PHOSPHOROUS 3.8 mg/dL (2.5-4.9)
[2016-06-22 07:27] LABS: POTASSIUM 4.7 mmol/L (3.5-5.1)
[2016-06-22 08:12] LABS: ABG BASE EXCESS 5.6 mmol/L (-2.0-2.0); ABG CO2 CONTENT 34.7 mmol/L (23-27); ABG HCO3 32.8 mmol/l (22-26); ABG TEMPERATURE 98.3 F (98.0-99.0); ARTERIAL BLOOD GAS PH 7.337 (7.35-7.45); ARTERIAL BLOOD GAS PO2 68.7 mmHg (80-90)
== END 2016-06-22 13:37 | disposition short-term general hospital (02) | DRG 291 ==
LOC: ED 13:47 → EDHOLD 18:19 → 4E 18:19
PROVIDERS: Emergency Medicine; Hospitalist; Internal Medicine; Internal Medicine Nephrology; Obstetrics & Gynecology
DX: I13.0 Hypertensive heart and chronic kidney disease with heart failure and stage 1 through stage 4 chronic kidney disease, or unspecified chronic kidney disease (principal); J96.00 Acute respiratory failure, unspecified whether with hypoxia or hypercapnia; N17.0 Acute kidney failure with tubular necrosis; I47.2 Ventricular tachycardia; E11.22 Type 2 diabetes mellitus with diabetic chronic kidney disease; D69.6 Thrombocytopenia, unspecified; I42.9 Cardiomyopathy, unspecified; I48.2 Chronic atrial fibrillation; E11.51 Type 2 diabetes mellitus with diabetic peripheral angiopathy without gangrene; B35.1 Tinea unguium; I50.21 Acute systolic (congestive) heart failure; E44.1 Mild protein-calorie malnutrition; L03.116 Cellulitis of left lower limb; L03.115 Cellulitis of right lower limb; E87.1 Hypo-osmolality and hyponatremia; E11.621 Type 2 diabetes mellitus with foot ulcer; L97.529 Non-pressure chronic ulcer of other part of left foot with unspecified severity; K21.9 Gastro-esophageal reflux disease without esophagitis; Z88.1 Allergy status to other antibiotic agents; Z88.0 Allergy status to penicillin; Z88.8 Allergy status to other drugs, medicaments and biological substances; T45.515A Adverse effect of anticoagulants, initial encounter; R79.1 Abnormal coagulation profile; R79.82 Elevated C-reactive protein (CRP); N18.9 Chronic kidney disease, unspecified; E66.3 Overweight; Z68.25 Body mass index [BMI] 25.0-25.9, adult; Z95.810 Presence of automatic (implantable) cardiac defibrillator; S80.822A Blister (nonthermal), left lower leg, initial encounter; I87.2 Venous insufficiency (chronic) (peripheral); M19.91 Primary osteoarthritis, unspecified site; Z79.01 Long term (current) use of anticoagulants; L97.519 Non-pressure chronic ulcer of other part of right foot with unspecified severity; E87.5 Hyperkalemia; E83.41 Hypermagnesemia

== ENCOUNTER 2016-10-09 09:13 | Inpatient (IN) | payer MEDICARE, OTHER ==
[~2016-10-09] VITALS: Ht 175.2 cm; Wt 70.8 kg
--- NOTE | ~2016-10-09 | EKG ---
[place], [place] ELECTROCARDIOGRAM REPORT NAME: MARIE MULLEN UNIT #: [id number] ROOM: 424 DOCTOR: STEVE AMBRIZ MD BIRTHDATE: [birth year] DOS: 10/09/2016 TIME: 0941 hours. Underlying rhythm is atrial paced. QRS is intrinsic with occasional ventricular pacing, ventricular sensing is demonstrated, mild ST segment depression in lateral leads is present. An abnormal ECG. No previous tracing is available for comparison. STEVE AMBRIZ MD CM:EKGRPT:ELECTROCARDIOGRAM REPORT 1717 1836 STEVE AMBRIZ MD
--- NOTE | ~2016-10-09 | EKG ---
[place], [place] ELECTROCARDIOGRAM REPORT NAME: MARIE MULLEN UNIT #: [id number] ROOM: 424 DOCTOR: STEVE AMBRIZ MD BIRTHDATE: [birth year] DOS: 10/09/2016 TIME: 0941 hours. Atrial pacing at 84 beats per minute. Occasional ventricular sensing is demonstrated. Mild ST segment depression in lateral leads with T-wave abnormality. An abnormal ECG. No previous tracing is available for comparison. STEVE AMBRIZ MD CM:EKGRPT:ELECTROCARDIOGRAM REPORT 1717 1741 STEVE AMBRIZ MD
[~2016-10-09 09:13] MED LIST changes: +ACETAZOLAMIDE250 MG PO; -COUMADIN4 M2 PO; +DOBUTAMINE250 MG/250 IV; +HYDROGEL1 GEL; +LISINOPRIL2.5 MG PO; +LOPRESSOR25 MG PO; +MULTI-VITAMIN1 EACH PO; +NORCO 5-325 TA1 EACH PO; +PROPRANOLOL HCL80 M3 PO; +SANTYL250 U/GM T
[2016-10-09 09:16] VITALS: BP 80/50
[2016-10-09] MEDS ORDERED: PROPRANOLOL HCL80 M3 PO (09:25)
[2016-10-09 09:41] LABS: BASO % 0.5 % (0.0-1.0); EOS # 0.4 10*3/uL (0.0-0.4); EOS % 4.6 % (1.0-4.0); HEMATOCRIT 46.5 % (42.0-52.0); HEMOGLOBIN 14.8 g/dl (14.0-18.0); LYMPH # 0.7 10*3/uL (1.3-4.4); LYMPH % 8.8 % (27.0-41.0); MEAN CELL VOLUME 90.6 fl (80.0-94.0); MEAN CORPUSCULAR HGB 28.8 pg (27.0-31.0); MEAN CORPUSCULAR HGB CONC 31.8 g/dl (33.0-37.0); MONO % 12.4 % (3.0-9.0); NEUT # 5.9 10*3/uL (2.3-7.9); NEUT % 73.3 % (47.0-73.0); PLATELET COUNT AUTOMATED 129 10*3/uL (130-400); RED BLOOD COUNT 5.13 10*6/uL (4.50-5.90); RED CELL DISTRI WIDTH 15.6 % (0-14.5)
[2016-10-09 09:50] VITALS: BP 78/47; BP 82/60
[2016-10-09 10:06] LABS: ALBUMIN 3.5 gm/dl (3.1-4.5); BILIRUBIN, TOTAL 0.7 mg/dl (0.2-1.0); MAGNESIUM 2.5 mg/dL (1.5-2.1); POTASSIUM 4.1 mmol/L (3.5-5.1); TOTAL PROTEIN 7.3 gm/dL (6.4-8.2)
[2016-10-09 10:11] LABS: TROPONIN I 0.112 ng/ml (<0.045)
[2016-10-09 10:26] LABS: DIGOXIN 0.93 ng/ml (0.8-2.0)
[2016-10-09 10:41] VITALS: BP 87/56
[2016-10-09 11:06] VITALS: BP 98/70
[2016-10-09 12:59] LABS: CKMB 5.1 ng/ml (0.5-3.6)
[2016-10-09 16:00] VITALS: BP 98/68
[2016-10-09 16:55] LABS: INTERNATIONAL NORM RATIO 2.8 (2.0-3.5); PROTHROMBIN TIME 31.8 SECONDS (9.0-12.4)
[2016-10-09 20:00] VITALS: BP 116/70
[2016-10-10] VITALS: BP 116/66
[2016-10-10 06:22] LABS: BASO % 0.5 % (0.0-1.0); EOS # 0.3 10*3/uL (0.0-0.4); EOS % 5.3 % (1.0-4.0); HEMATOCRIT 41.1 % (42.0-52.0); HEMOGLOBIN 13.1 g/dl (14.0-18.0); LYMPH # 0.6 10*3/uL (1.3-4.4); MEAN CELL VOLUME 89.7 fl (80.0-94.0); MEAN CORPUSCULAR HGB 28.6 pg (27.0-31.0); MEAN CORPUSCULAR HGB CONC 31.9 g/dl (33.0-37.0); MEAN PLATELET VOLUME 10.2 fl (9.6-12.3); MONO # 0.7 10*3/uL (0.1-1.0); NEUT # 4.2 10*3/uL (2.3-7.9); NEUT % 71.9 % (47.0-73.0); PLATELET COUNT AUTOMATED 92 10*3/uL (130-400); RED BLOOD COUNT 4.58 10*6/uL (4.50-5.90); RED CELL DISTRI WIDTH 15.4 % (0-14.5); WHITE BLOOD COUNT 5.9 10*3/uL (4.8-10.8)
[2016-10-10 06:42] LABS: INTERNATIONAL NORM RATIO 2.8 (2.0-3.5); PROTHROMBIN TIME 31.2 SECONDS (9.0-12.4)
[2016-10-10 06:45] LABS: CARBON DIOXIDE 25 mmol/L (21-32); CHLORIDE 107 mmol/L (98-107); CHOLESTEROL 75 mg/dL (<200); EST GLOM FILT AFRICAN AMERICAN > 60 ml/min; GLUCOSE 88 mg/dL (65-99); HDL CHOLESTEROL 22 mg/dl (40-60); LDL CHOLESTEROL 30 mg/dL (9-159); MAGNESIUM 2.1 mg/dL (1.5-2.1); PHOSPHOROUS 2.5 mg/dL (2.5-4.9); POTASSIUM 3.7 mmol/L (3.5-5.1); SODIUM 141 mmol/L (136-145); TRIGLYCERIDES 117 mg/dl (<150); VLDL CHOLESTEROL 23 mg/dL (6-40)
[2016-10-10 06:46] LABS: BUN 38 mg/dl (7-24)
[2016-10-10 08:00] VITALS: BP 116/86
[2016-10-10 12:00] VITALS: BP 118/67
[2016-10-10 16:00] VITALS: BP 116/82
[2016-10-10 20:00] VITALS: BP 125/84
[2016-10-11] VITALS: BP 128/72
[2016-10-11 08:00] VITALS: BP 128/80
[2016-10-11 12:00] VITALS: BP 134/74
[2016-10-11 16:00] VITALS: BP 120/80
[2016-10-11 20:00] VITALS: BP 136/82
[2016-10-12] VITALS: BP 140/79
[2016-10-12 08:00] VITALS: BP 110/80
[2016-10-12 12:00] VITALS: BP 113/89
[2016-10-12 16:00] VITALS: BP 122/84
[2016-10-12 20:00] VITALS: BP 117/78
[2016-10-13] VITALS: BP 116/88
[2016-10-13 06:26] LABS: BASO % 0.6 % (0.0-1.0); EOS # 0.5 10*3/uL (0.0-0.4); HEMATOCRIT 43.7 % (42.0-52.0); HEMOGLOBIN 14.2 g/dl (14.0-18.0); LYMPH # 0.9 10*3/uL (1.3-4.4); LYMPH % 13.3 % (27.0-41.0); MEAN CELL VOLUME 89.4 fl (80.0-94.0); MEAN CORPUSCULAR HGB CONC 32.5 g/dl (33.0-37.0); MEAN PLATELET VOLUME 9.4 fl (9.6-12.3); MONO # 0.8 10*3/uL (0.1-1.0); NEUT # 4.5 10*3/uL (2.3-7.9); NEUT % 66.7 % (47.0-73.0); PLATELET COUNT AUTOMATED 93 10*3/uL (130-400); RED BLOOD COUNT 4.89 10*6/uL (4.50-5.90); RED CELL DISTRI WIDTH 15.1 % (0-14.5); WHITE BLOOD COUNT 6.7 10*3/uL (4.8-10.8)
[2016-10-13 06:49] LABS: BUN 17 mg/dl (7-24); CARBON DIOXIDE 29 mmol/L (21-32); CHLORIDE 104 mmol/L (98-107); EST GLOM FILT AFRICAN AMERICAN > 60 ml/min; GLUCOSE 87 mg/dL (65-99); POTASSIUM 3.8 mmol/L (3.5-5.1); SODIUM 141 mmol/L (136-145)
[2016-10-13 07:00] LABS: INTERNATIONAL NORM RATIO 2.4 (2.0-3.5); PROTHROMBIN TIME 26.4 SECONDS (9.0-12.4)
[2016-10-13 08:00] VITALS: BP 107/74
[2016-10-13 12:00] VITALS: BP 110/80
[2016-10-13] MEDS ORDERED: LOPRESSOR25 MG PO (15:58)
[2016-10-13] MEDS ORDERED: NORCO 5-325 TA1 EACH PO (15:59)
[2016-10-13 16:00] VITALS: BP 110/80; BP 130/88
[2016-10-13] MEDS ORDERED: PROPRANOLOL HCL40 MG PO (19:02)
[2016-10-13] MEDS ORDERED: TORSEMIDE20 MG PO (19:04)
== END 2016-10-13 16:17 | disposition other institution (70) | DRG 683 ==
LOC: ED 09:13 → 4E 11:02 → EDHOLD 11:02 → 4E 11:19
PROVIDERS: Family Medicine; Internal Medicine; Nurse Practitioner Family
DX: N17.0 Acute kidney failure with tubular necrosis (principal); I13.0 Hypertensive heart and chronic kidney disease with heart failure and stage 1 through stage 4 chronic kidney disease, or unspecified chronic kidney disease; I95.9 Hypotension, unspecified; E11.22 Type 2 diabetes mellitus with diabetic chronic kidney disease; E83.41 Hypermagnesemia; I50.9 Heart failure, unspecified; R19.7 Diarrhea, unspecified; Z79.899 Other long term (current) drug therapy; Z88.1 Allergy status to other antibiotic agents; Z88.6 Allergy status to analgesic agent; Z88.0 Allergy status to penicillin; Z88.8 Allergy status to other drugs, medicaments and biological substances; Z79.01 Long term (current) use of anticoagulants; Z79.82 Long term (current) use of aspirin; Z95.0 Presence of cardiac pacemaker; R79.82 Elevated C-reactive protein (CRP); I48.91 Unspecified atrial fibrillation; K21.9 Gastro-esophageal reflux disease without esophagitis; Z80.42 Family history of malignant neoplasm of prostate; N18.3 Chronic kidney disease, stage 3 (moderate); Z98.49 Cataract extraction status, unspecified eye

== ENCOUNTER 2016-11-12 09:48 | Emergency (ER) | payer MEDICARE, OTHER ==
[~2016-11-12] VITALS: Ht 175.2 cm; Wt 80.3 kg
[~2016-11-12 09:48] MED LIST changes: +COUMADIN4 M2 PO; -LISINOPRIL2.5 MG PO; +MAGNESIUM OXID400 MG PO; +PRINIVIL5 M1 PO; +PROPRANOLOL HCL40 MG PO; +TORSEMIDE20 MG PO
[2016-11-12 10:06] LABS: BASO % 0.5 % (0.0-1.0); EOS # 0.3 10*3/uL (0.0-0.4); EOS % 4.4 % (1.0-4.0); HEMATOCRIT 41.8 % (42.0-52.0); HEMOGLOBIN 12.7 g/dl (14.0-18.0); LYMPH # 0.7 10*3/uL (1.3-4.4); LYMPH % 9.3 % (27.0-41.0); MEAN CELL VOLUME 88.9 fl (80.0-94.0); MEAN CORPUSCULAR HGB CONC 30.4 g/dl (33.0-37.0); MEAN PLATELET VOLUME 9.3 fl (9.6-12.3); MONO # 0.8 10*3/uL (0.1-1.0); MONO % 10.2 % (3.0-9.0); NEUT # 5.9 10*3/uL (2.3-7.9); NEUT % 75.3 % (47.0-73.0); PLATELET COUNT AUTOMATED 144 10*3/uL (130-400); RED CELL DISTRI WIDTH 15.9 % (0-14.5); WHITE BLOOD COUNT 7.8 10*3/uL (4.8-10.8)
[2016-11-12 10:24] VITALS: BP 109/76
[2016-11-12 10:24] LABS: ALBUMIN 3.2 gm/dl (3.1-4.5); BILIRUBIN, TOTAL 0.9 mg/dl (0.2-1.0); MAGNESIUM 2.5 mg/dL (1.5-2.1); POTASSIUM 4.1 mmol/L (3.5-5.1); TOTAL PROTEIN 6.8 gm/dL (6.4-8.2)
== END 2016-11-12 12:18 ==
LOC: ED 09:48
PROVIDERS: Emergency Medicine
DX: I47.2 Ventricular tachycardia (principal); I11.0 Hypertensive heart disease with heart failure; I50.9 Heart failure, unspecified; K21.9 Gastro-esophageal reflux disease without esophagitis; Z95.0 Presence of cardiac pacemaker; Z79.82 Long term (current) use of aspirin; Z79.01 Long term (current) use of anticoagulants; Z79.899 Other long term (current) drug therapy; Z88.0 Allergy status to penicillin; Z88.1 Allergy status to other antibiotic agents; Z88.8 Allergy status to other drugs, medicaments and biological substances

== ENCOUNTER 2016-11-15 16:21 | Inpatient (IN) | payer MEDICARE, OTHER ==
[~2016-11-15] VITALS: Ht 175.3 cm; Wt 78.0 kg
--- NOTE | ~2016-11-15 | CON ---
[place], [place] REPORT OF CONSULTATION NAME: MARIE MULLEN UNIT #: [id number] ROOM: [facility] DOCTOR: LELAND SAUNDERSCARLENE BIRTHDATE: [birth year] DOS: 11/15/2016 HISTORY OF PRESENT ILLNESS: The patient is a 66-year-old gentleman apparently from the retirement, was admitted because of the defibrillator firing. The patient has a history of severe cardiomyopathy. The last ejection fraction, I see, is about 10%, done in 2009, maybe he might have had it as an outpatient, most of the information is obtained from the chart. The patient denies any chest pain or shortness of breath. He appears to be comfortable now, 100% paced now. We have asked the pacemaker company to come and check the defibrillator. The patient also gets outpatient dobutamine therapy. PAST MEDICAL HISTORY: Significant atrial fibrillation, cardiomyopathy, congestive heart failure, systolic failure, hypertension, generalized weakness, nonsustained V-tach, defibrillator and history of warfarin-induced coagulopathy. PAST SURGICAL HISTORY: Cataract surgery, hernia repair, AICD. SOCIAL HISTORY: Does not drink or smoke. FAMILY HISTORY: Not pertinent. ALLERGIES: PENICILLIN, IMIPENEM, AND VANCOMYCIN. HOME MEDICATIONS: Aspirin, digoxin, dobutamine as an outpatient, lisinopril, metoprolol, potassium, torsemide, and Coumadin. REVIEW OF SYSTEMS: CONSTITUTIONAL: No fever, no chills. HEENT: No visual disturbances or hearing problems. CARDIOVASCULAR: Denies any chest discomfort. RESPIRATORY: Does have dyspnea on exertion. GASTROINTESTINAL: No nausea, no vomiting. GENITOURINARY: No dysuria. NEUROLOGICAL: Stable. PHYSICAL EXAMINATION: VITAL SIGNS: Blood pressure is 110/70, 100% paced rhythm. HEENT: Unremarkable. NECK: Supple, mildly elevated JVD. LUNGS: Diminished breath sounds. HEART: Sounds are paced. NEUROLOGIC: He appears to be stable. LABORATORY DATA: Sodium 134, potassium 4.3, BUN 48, creatinine 1.8. Troponin is 0.123, probably related to AICD shock. Hemoglobin 12, hematocrit 39.8. Chest x-ray was normal. IMPRESSION: AICD discharge, hypertension, severe left ventricular dysfunction, history of systolic heart failure in the past, diabetes mellitus, atrial fibrillation with subtherapeutic INR. [place], [place] REPORT OF CONSULTATION NAME: MARIE MULLEN UNIT #: [id number] ROOM: [facility] DOCTOR: CARLENE HA MD BIRTHDATE: [birth year] RECOMMENDATIONS: Continue the beta blockers, continue to monitor electrolytes closely. We will have the AICD interrogated. If he has any recurrent bouts of ventricular tachycardia, the patient will be started on amiodarone and we will follow up. CARLENE HA MD CM:CONSTR:REPORT OF CONSULTATION 0740 11/16/16 1102 interface
--- NOTE | ~2016-11-15 | WRIGHTHP ---
[place], [place] PATIENT HISTORY AND PHYSICAL EXAM NAME: MARIE MULLEN UNIT #: [id number] ROOM: [facility] DOCTOR: UZMA BRYANT MD BIRTHDATE: [birth year] DOS: 11/16/2016 The patient has been admitted to hospital as his pacemaker was firing very much and he was feeling very restless. He came to the emergency department from where he had just admitted to the hospital and patient has history of atrial fibrillation, chronic kidney disease, congestive heart failure, diabetes mellitus, foot ulcer, generalized weakness, GERD syndrome, hypertension, inability to ambulate, type 2 diabetes mellitus, dementia, ventricular tachycardia and Coumadin induced coagulopathy. The patient at present is feeling very comfortable. He does not have any chest pain. He is in normal sinus rhythm on the computer. OBJECTIVE: VITAL SIGNS: Blood pressure 110/60, pulse 75, respirations 18, temperature 98.4. HEART: Regular. CHEST: Clear. ABDOMEN: Soft. LABORATORY DATA: His troponin level is 0.125, which is higher. Repeat troponin level is little less than 0.122 and dig level is 0.77, which is lower than normal value. PLAN OF TREATMENT: The patient will be evaluated by Dr. Jennings, back hand. He will decide about the further action. UZMA BRYANT MD CM:HISPHYS:PATIENT HISTORY AND PHYSICAL EXAMINATION 0920 1004 UZMA BRYANT MD 11/16/16 1534 interface
[2016-11-15 16:51] VITALS: BP 112/78
[2016-11-15 16:56] VITALS: BP 112/78
[2016-11-15 17:00] LABS: BASO % 0.2 % (0.0-1.0); EOS # 0.2 10*3/uL (0.0-0.4); EOS % 2.8 % (1.0-4.0); HEMATOCRIT 39.8 % (42.0-52.0); LYMPH # 0.5 10*3/uL (1.3-4.4); LYMPH % 8.6 % (27.0-41.0); MEAN CELL VOLUME 89.2 fl (80.0-94.0); MEAN CORPUSCULAR HGB 26.9 pg (27.0-31.0); MEAN CORPUSCULAR HGB CONC 30.2 g/dl (33.0-37.0); MEAN PLATELET VOLUME 9.3 fl (9.6-12.3); MONO # 0.5 10*3/uL (0.1-1.0); MONO % 8.1 % (3.0-9.0); NEUT # 4.9 10*3/uL (2.3-7.9); PLATELET COUNT AUTOMATED 113 10*3/uL (130-400); RED BLOOD COUNT 4.46 10*6/uL (4.50-5.90); RED CELL DISTRI WIDTH 15.9 % (0-14.5); WHITE BLOOD COUNT 6.2 10*3/uL (4.8-10.8)
[2016-11-15 17:17] LABS: ALBUMIN 3.2 gm/dl (3.1-4.5); CREATININE 1.85 mg/dL (0.70-1.30); MAGNESIUM 2.6 mg/dL (1.5-2.1); POTASSIUM 4.3 mmol/L (3.5-5.1); TOTAL PROTEIN 6.8 gm/dL (6.4-8.2)
[2016-11-15 17:21] LABS: TROPONIN I 0.109 ng/ml (<0.045)
[2016-11-15 19:14] VITALS: BP 118/86
[2016-11-15 19:40] VITALS: BP 117/79
[2016-11-15] MEDS ORDERED: ARGINAID POWDE1 EACH PO (19:44)
[2016-11-15] MEDS ORDERED: ROBITUSSIN DM 101 OZ PO (19:46)
[2016-11-15] MEDS ORDERED: METOPROLOL TART50 M1 PO (19:51)
[2016-11-15] MEDS ORDERED: NORCO 5-325 TA1 EACH PO (19:53)
[2016-11-15] MEDS ORDERED: POTASSIUM CHLO20 ME3 PO ×2 (19:55→19:56)
[2016-11-15 20:00] VITALS: BP 117/79
[2016-11-15 20:18] LABS: INTERNATIONAL NORM RATIO 1.4 (2.0-3.5)
[2016-11-15 23:57] VITALS: BP 111/84
[2016-11-16 04:04] VITALS: BP 112/80
[2016-11-16 05:57] LABS: BASO % 0.5 % (0.0-1.0); EOS # 0.3 10*3/uL (0.0-0.4); EOS % 4.7 % (1.0-4.0); HEMATOCRIT 36.6 % (42.0-52.0); HEMOGLOBIN 11.1 g/dl (14.0-18.0); LYMPH # 0.7 10*3/uL (1.3-4.4); LYMPH % 12.2 % (27.0-41.0); MEAN CELL VOLUME 90.4 fl (80.0-94.0); MEAN CORPUSCULAR HGB 27.4 pg (27.0-31.0); MEAN CORPUSCULAR HGB CONC 30.3 g/dl (33.0-37.0); MONO # 0.7 10*3/uL (0.1-1.0); MONO % 12.1 % (3.0-9.0); NEUT % 70.2 % (47.0-73.0); PLATELET COUNT AUTOMATED 97 10*3/uL (130-400); RED BLOOD COUNT 4.05 10*6/uL (4.50-5.90); RED CELL DISTRI WIDTH 15.9 % (0-14.5); WHITE BLOOD COUNT 5.7 10*3/uL (4.8-10.8)
[2016-11-16 06:34] LABS: ACT PARTIAL THROMBO TIME 30.6 SECONDS (20.8-31.5); CREATININE 1.66 mg/dL (0.70-1.30); INTERNATIONAL NORM RATIO 1.4 (2.0-3.5); MAGNESIUM 2.6 mg/dL (1.5-2.1); PHOSPHOROUS 3.6 mg/dL (2.5-4.9); POTASSIUM 3.7 mmol/L (3.5-5.1)
[2016-11-16 06:43] LABS: THYROID STIM HORMONE (HS) 1.29 uIU/ml (0.358-4.75)
[2016-11-16 07:15] LABS: VITAMIN D, 25-HYDROXY 42.7 ng/mL (30-100)
[2016-11-16 08:00] VITALS: BP 118/60
[2016-11-16 12:00] VITALS: BP 112/80
[2016-11-16 16:00] VITALS: BP 104/78
[2016-11-16 20:00] VITALS: BP 102/68
[2016-11-17] VITALS: BP 110/82
[2016-11-17 04:00] VITALS: BP 107/76
[2016-11-17 07:37] LABS: INTERNATIONAL NORM RATIO 1.3 (2.0-3.5)
[2016-11-17 08:00] VITALS: BP 110/80
[2016-11-17] MEDS ORDERED: PACERONE200 MG PO (11:52)
[2016-11-17 12:00] VITALS: BP 115/93
== END 2016-11-17 14:17 | disposition home or self-care (01) | DRG 309 ==
LOC: ED 16:21 → EDHOLD 18:04 → ICCU 18:04
PROVIDERS: Family Medicine; Internal Medicine; Physician Assistant; ADMIT Internal Medicine
PROC: 4B02XTZ Measurement of Cardiac Defibrillator, External Approach (ICD-10-PCS; principal; 2016-11-15)
DX: I47.2 Ventricular tachycardia (principal); E44.0 Moderate protein-calorie malnutrition; E11.22 Type 2 diabetes mellitus with diabetic chronic kidney disease; I42.9 Cardiomyopathy, unspecified; I50.22 Chronic systolic (congestive) heart failure; I13.0 Hypertensive heart and chronic kidney disease with heart failure and stage 1 through stage 4 chronic kidney disease, or unspecified chronic kidney disease; F03.90 Unspecified dementia, unspecified severity, without behavioral disturbance, psychotic disturbance, mood disturbance, and anxiety; E83.52 Hypercalcemia; E87.1 Hypo-osmolality and hyponatremia; I48.91 Unspecified atrial fibrillation; E11.621 Type 2 diabetes mellitus with foot ulcer; T30.0 Burn of unspecified body region, unspecified degree; K21.9 Gastro-esophageal reflux disease without esophagitis; I83.10 Varicose veins of unspecified lower extremity with inflammation; N18.3 Chronic kidney disease, stage 3 (moderate); I34.0 Nonrheumatic mitral (valve) insufficiency; E66.3 Overweight; Z88.0 Allergy status to penicillin; Z88.1 Allergy status to other antibiotic agents; Z88.8 Allergy status to other drugs, medicaments and biological substances; Z91.048 Other nonmedicinal substance allergy status; Z79.82 Long term (current) use of aspirin; Z79.01 Long term (current) use of anticoagulants; Z79.899 Other long term (current) drug therapy; Z98.49 Cataract extraction status, unspecified eye; Z72.89 Other problems related to lifestyle; Z80.42 Family history of malignant neoplasm of prostate; Z68.25 Body mass index [BMI] 25.0-25.9, adult; Z95.0 Presence of cardiac pacemaker; L97.529 Non-pressure chronic ulcer of other part of left foot with unspecified severity; E11.65 Type 2 diabetes mellitus with hyperglycemia